=== PATIENT | female | born 1965 | race Hispanic/Latino ===

== ENCOUNTER 2024-11-11 07:12 | Inpatient (IN) | payer OTHER ==
[2024-11-07 09:52] LABS: BASOPHILS # (AUTO) 0.02 K/uL (0.00-0.20); BASOPHILS % (AUTO) 0.4 % (0.0-5.0); EOSINOPHILS # (AUTO) 0.04 K/uL (0.00-0.70); EOSINOPHILS % (AUTO) 0.8 % (0.0-8.0); HEMATOCRIT 37.7 % (36-48); IMMATURE GRANULOCYTE ABSOLUTE 0.01 K/uL (0-1); LYMPHOCYTES # (AUTO) 1.6 K/uL (1.0-4.8); LYMPHOCYTES % (AUTO) 32.7 % (21.0-51.0); MEAN CORPUSCULAR HEMOGLOBIN 30.6 pg (27.0-33.0); MEAN CORPUSCULAR HGB CONC 32.6 g/dL (32.0-36.0); MEAN CORPUSCULAR VOLUME 93.8 fL (79-99); MONOCYTES # (AUTO) 0.4 K/uL (0.1-1.0); MONOCYTES % (AUTO) 8.1 % (3.0-13.0); NEUTROPHILS # (AUTO) 2.8 K/uL (1.8-7.7); NEUTROPHILS % (AUTO) 57.8 % (40.0-77.0); PLATELET COUNT (AUTO) 198 K/uL (130-400); RED BLOOD CELL COUNT(AUTO) 4.02 MIL/uL (4.00-5.50); WHITE BLOOD COUNT (AUTO) 4.8 K/uL (4.8-10.8)
[2024-11-07 10:06] LABS: INR <= 0.93 (0.85-1.15); PROTHROMBIN TIME 9.9 SEC (9.6-11.6)
[2024-11-07 10:07] LABS: PARTIAL THROMBOPLASTIN TIME 25.1 SEC (26.3-35.5)
[2024-11-07 10:19] VITALS: BP 105/67; PULSE 59; RESP 16; TEMP 97.4
[~2024-11-11] VITALS: Ht 160 cm; Wt 83.5 kg
[2024-11-11] VITALS (32 sets, daily range): BP systolic 72–128; BP diastolic 30–71; PULSE 60–81; RESP 12–18; TEMP 97.4–98.4; O2SAT 100
[2024-11-11] MEDS: THROMBIN-JMI 5000 UNIT/VIAL TP ONE
[2024-11-11] MEDS: BUPIvacaine/PF 0.25% 30ML VIAL IJ ONE
[2024-11-11] MEDS: VANCOMYCIN 1G/250ML KIT 250 ML IV ONE
[2024-11-11] MEDS: TOBRAMYCIN SULFATE ONE
[2024-11-11] MEDS: LACTATED RINGERS 1000ML 1,000 ML IV ONE (06:17)
[~2024-11-11 07:12] MED LIST: ATEN50TA PO; ATOR40TA69 PO; FLUO10TA35 PO; LEVO137C4 PO
[2024-11-11] MEDS: acetaMINOPHEN 100 ML ONE (07:32)
[2024-11-11] MEDS ORDERED: ketaMINE 50MG/ML SYRINGE 50 MG/ML DISP.SYRIN ONE (07:33)
[2024-11-11] MEDS ORDERED: dexmedeTOMIDine HCL 200 MCG/2 ML VIAL IV ONE (07:33)
[2024-11-11] MEDS ORDERED: proPOFol 1000 MG/100 ML 100 ML IV ONE (07:34)
[2024-11-11] MEDS ORDERED: LIDOCAINE PF 100MG/5ML (2%) SYRINGE 5ML ONE ×2 (07:44→08:47)
[2024-11-11] MEDS ORDERED: proPOFol 10 MG/ML 20ML VIAL IV ONE (07:44)
[2024-11-11] MEDS ORDERED: FENTanyl CITRate PF 50 MCG/1 ML 2ML VIAL ONE (07:45)
[2024-11-11] MEDS ORDERED: rocuRONium bROMide 10MG/1ML 5ML VL ONE (07:45)
[2024-11-11 07:50] LABS: CREATININE 0.7 mg/dL (0.5-1.0); POTASSIUM 4.5 mmol/L (3.5-5.1)
[2024-11-11] MEDS ORDERED: ondanSETRON 4MG INJ ONE (08:11)
[2024-11-11] MEDS ORDERED: dexaMETHasone SOD PHOSPHATE 10MG/ML 1ML VIAL ONE (08:11)
[2024-11-11] MEDS: ceFAZolin SODIUM 2 GM VIAL ONE (08:35)
[2024-11-11] MEDS ORDERED: MIDAZOLAM HCL 1 MG/ML 2ML VIAL ONE (08:40)
[2024-11-11] MEDS ORDERED: phenylEPHRINE HCL 10 MG/ML 1ML VIAL IV ONE ×2 (09:04→09:05)
[2024-11-11] MEDS ORDERED: GLYCOPYRROLATE 0.2 MG/ML 5 ML VIAL ONE ×2 (09:23→11:59)
[2024-11-11] MEDS ORDERED: NEOSTIGMINE METHYLSULFATE 1MG/ML IV ONE (09:23)
[2024-11-11] MEDS ORDERED: ketOROlac 30MG VIAL (30MG/ML) ONE (11:46)
--- NOTE | 2024-11-11 12:45 | HMCIMG ---
Fluoroscopic guidance History: L-spine decomp W/ PLIF Fluoroscopic guidance provided. Procedure by ordering physician in operating room suite with fluoroscopic guidance. Several spot images were obtained. Impression: Fluoroscopic guidance.
[2024-11-11] MEDS: ePHEDrine SULFate 50 MG/ML AMPULE ONE (13:19)
--- NOTE | 2024-11-11 14:10 | OP ---
DATE OF PROCEDURE: 11/11/2024 PREOPERATIVE DIAGNOSIS: Lumbar spinal stenosis, lumbosacral radiculopathy with mechanical instability L4-L5, L5-S1, and disk herniation. POSTOPERATIVE DIAGNOSIS: Lumbar spinal stenosis, lumbosacral radiculopathy with mechanical instability L4-L5, L5-S1, and disk herniation. SURGEON: Balbir Henderson MD PROCEDURE PERFORMED: Posterior lumbar decompressive laminectomy L4-L5, L5-S1, interbody cage fusion with diskectomy, medial facetectomy, and foraminotomy L4-L5, L5-S1, titanium expandable cage L4-L5 and L5-S1 #8 and expanded to size #10. Lateral pedicle screw fixation L4, L5 and S1 confirmed by fluoroscopic guidance and allograft bony fusion with morselized autograft into the area of the gutters under sterile controlled condition. DESCRIPTION OF PROCEDURE: The patient was taken to the operating room, induced under general endotracheal anesthesia, placed in a prone position with adequate padding of the upper and lower extremities. I went ahead and made an incision guided by fluoroscopy machine at the level of L4-L5, L5-S1, dissected subperiosteally the muscles from the spinous process and lamina of facet joint, applied my Weitlaner retractors and after my Weitlaner retractors were applied, I went ahead and started doing the application of the pedicle screws. A 50 x 6.5 mm were placed in the L4, 45 x 6.0 two of them were placed at the level of L5, and 40 x 6.0 were placed in the area of the sacrum with good purchase into the bone and guided by fluoroscopy machine. After that, I went ahead and dissected and removed with an M8 drill all the available facet joint, lamina exposing disk space at the L4-L5, L5-S1, removing the disc and performing total diskectomy with application of my lukas, preparing the endplates to receive the cage. The cage was impacted after it was completely clean and full of bone and antibiotics were applied also to the area of the bone site and impaction of the cage was placed with bone into the space peripherally aligning the midline following the TLIF technique. After that was done, I went ahead and filled out the cavity with bone as well. I went ahead and decorticated the gutters, lamina, facet joint, transverse process and I put bone graft, again NovaBone and DBM with mixed bone from the patient morselized into the gutters and I put my kajal, locked my kajal in place with the screws, applied good compression and I applied antibiotics to the surface, Marcaine and I injected Marcaine into the muscle. I laid a JERRY #10 at the area of the epidural space and I closed with Vicryl 1-0 the fascia and Vicryl 2-0 the subcutaneous tissue as well as the fat and also I put carlos. Estimated blood loss about less than 25 mL. No complications. SSEPs were measured. The screws were tested with the Bovie. No evidence of irritation or high impedance. ESTIMATED BLOOD LOSS: . TID: [id number] RECEIPT: [id number]
[2024-11-11] MEDS: FAMOTIDINE 20MG VIAL IV ONE (14:38)
[2024-11-11] MEDS ORDERED: MEPERIDINE-PF 50 MG/ML SYG IVP PRN (15:00)
[2024-11-11] MEDS: ketOROlac 30MG VIAL (30MG/ML) IM ONE (15:04)
--- NOTE | 2024-11-11 18:08 | NUR ---
Pt seen for PT eval. Pt with 7/10 pain and soft BP of 88/38 in supine. LSO delivered. Patient agreeable to donning brace and repositioning. Bed mobility mod assist x 2pl for log roll, side to sit, sit to side and log roll back. Min assist x1 sit to stand, transfer and gait less than 10ft with SW. Back to bed patient is dizzy. Drain and LSO in place. Nurse Landen present and assisted. Pt with LSO, JERRY drain in place, call solorzano in reach, SCDs on. Education provided regarding pain mgt and plan of care. No further concerns. BP 77/39 98 02 75 HR at end of session. Pt attempting to eat. DC plan home with spouse.
[2024-11-11] MEDS: LACTULOSE 20 GM/30 ML UDCUP PO PRN (19:30)
[2024-11-11] MEDS: HYDROcodone/APAP 5/325 1 TAB TABLET PO PRN (19:33)
[2024-11-11] MEDS: ketOROlac 15MG/ML VIAL (15MG/ML) IM PRN (21:00)
[2024-11-12] VITALS (8 sets, daily range): BP systolic 91–106; BP diastolic 40–56; PULSE 73–85; RESP 18–20; TEMP 98.1–99.2; O2SAT 96–98
[2024-11-12 07:44] LABS: HEMATOCRIT 29.5 % (36-48); MEAN CORPUSCULAR HEMOGLOBIN 30.4 pg (27.0-33.0); MEAN CORPUSCULAR HGB CONC 32.9 g/dL (32.0-36.0); MEAN CORPUSCULAR VOLUME 92.5 fL (79-99); RED BLOOD CELL COUNT(AUTO) 3.19 MIL/uL (4.00-5.50); WHITE BLOOD COUNT (AUTO) 8.3 K/uL (4.8-10.8)
[2024-11-12 07:52] LABS: CREATININE 0.7 mg/dL (0.5-1.0)
[2024-11-12] MEDS ORDERED: morPHINE 4 MG SYG IVP PRN (11:30)
[2024-11-12 12:57] LABS: HEMATOCRIT 28.3 % (36-48); MEAN CORPUSCULAR HEMOGLOBIN 31.3 pg (27.0-33.0); MEAN CORPUSCULAR HGB CONC 33.6 g/dL (32.0-36.0); MEAN CORPUSCULAR VOLUME 93.1 fL (79-99); PLATELET COUNT (AUTO) 159 K/uL (130-400); RED BLOOD CELL COUNT(AUTO) 3.04 MIL/uL (4.00-5.50); RED CELL DISTRIBUTION WIDTH 12.2 % (11.0-15.5); WHITE BLOOD COUNT (AUTO) 8.1 K/uL (4.8-10.8)
[2024-11-12] MEDS: acetaMINOPHEN 325 MG TAB PO PRN (13:08)
[2024-11-12] MEDS: 0.9%NACL 1000ML 1,000 ML IV SCH (13:08)
[2024-11-12] MEDS: PANTOPrazole 40 MG/VIAL IVP SCH (13:08)
[2024-11-12 13:10] LABS: ALBUMIN 3.4 g/dL (3.5-5.0); BILIRUBIN,DIRECT 0.1 mg/dL (0.0-0.3); BILIRUBIN,TOTAL 0.5 mg/dL (0.2-1.0); TOTAL PROTEIN, SERUM 6.4 g/dL (6.0-8.3)
--- NOTE | 2024-11-12 13:10 | CONS ---
[facility] CONSULTATION NOTE Date of Service: Nov 12, 2024 Reason for Consultation: [Medical Management ] Requesting Physician: [ Dr. Henderson] HISTORY OF PRESENT ILLNESS: Date of service: 11/12/2024, patient was seen in [facility] room 424 59-year-old female with underlying history of hypertension, hyperlipidemia, history of peripheral neuropathy, hypothyroidism with chronic history of lumbar spinal stenosis with lumbosacral radiculopathy over the past two years. Patient is currently postoperative day 1 after she had a posterior lumbar decompressive laminectomy involving L4-L5, L5-S1, interbody cage fusion with discectomy, medial facetectomy, foraminotomy L4-L5, L5-S1, titanium expandable cage L4-L5 and L5-S1 #8 and expanded to size #10. Lateral pedicle screw fixation L4, L5 and S1 confirmed by fluoroscopic guidance and allograft bony fusion with morselized autograft into the area of the gutters by Dr. Henderson on 11/11/2024. Patient is seen postoperatively today. She denies any focal weakness of upper or lower extremities. She denies any shortness of breath, chest pain or chest pressure. Pressure postoperatively was running low yesterday with systolics in the 90s-70s. Patient is on atenolol 50 mg at bedtime usually for management of high blood pressure. She did not take the dose of blood pressure medication yesterday. Nursing staff reports that patient has had about 300 cc of serosanguineous output from the JERRY drain post surgery yesterday as well as 60 cc this a.m.. Patient denies overt signs of GI bleeding otherwise. REVIEW OF SYSTEMS CONSTITUTIONAL: Denies fevers, chills, or night sweats. No unintentional weight loss reported. NEUROLOGICAL: Denies headache, amaurosis fugax, motor weakness, sensory deficit, vertigo/spinning sensation, gait abnormalities, or tremors. Reports having postoperative back pain. ENT: No hearing loss, otalgia, otorrhea, rhinitis, rhinorrhea, hoarseness, or sore throat. CARDIOVASCULAR: Denies any exertional angina, dyspnea on exertion, orthopnea, paroxysmal nocturnal dyspnea, palpitations, life-threatening arrhythmias, claudication. PULMONARY: Denies any shortness of breath, cough, phlegm/sputum, hemoptysis, pleuritic chest pain. SLEEP: Denies morning headaches, daytime somnolence or napping. Denies difficulty falling asleep, staying asleep, waking from sleep. Denies knowledge of snoring. GASTROINTESTINAL: Denies any type of dysphagia to either liquids or solids. De nies nausea, vomiting, pyrosis, early satiety, abdominal pain, diarrhea, constipation, or changes in stool consistency or caliber. Denies coffee-ground emesis, hematemesis, hematochezia, or melanotic stools. GENITOURINARY: Denies frequency, urgency, nocturia, hematuria or incontinence (Storage/Irritative symptoms.) Low urinary stream, straining to void, urinary intermittency or hesitancy, splitting of the voiding stream, terminal dribbling. ENDOCRINOLOGIC: Denies polyuria, polydipsia, polyphagia or heat/cold intolerances. HEMATOLOGIC: Denies thrombophilia/previous clots, or coagulopathy/bleeding disorders. ONCOLOGIC: Denies personal history of malignancy. DERMATOLOGIC: Denies rashes or pruritus. PSYCHIATRIC: Denies any suicidal or homicidal ideation. Denies hallucinations. PAST MEDICAL HISTORY: Hypertension, obesity, hyperlipidemia, history of peripheral neuropathy, history of lumbar stenosis with radiculopathy, hypothyroidism PAST SURGICAL HISTORY: Bilateral carpal tunnel syndrome history of carpal tunnel release for bilateral carpal tunnel syndrome, history of nasal septoplasty PAST SOCIAL HISTORY: She denies any active smoking or alcohol consumption FAMILY HISTORY: Denies pertinent family history Allergies: Denies any known drug allergies Medications: Atenolol 50 mg daily at bedtime, atorvastatin 40 mg daily, fluoxetine 10 mg daily, levothyroxine 137 mcg daily Coded Allergies: No Known Drug Allergies (Unverified Allergy, Unknown, 11/07/24) PHYSICAL EXAM GENERAL APPEARANCE: The patient is awake, alert, and oriented, in no acute c ardiopulmonary distress. NEUROLOGICAL: Cranial nerves II-XII grossly intact. Motor is 5/5 in bilateral upper and lower extremities proximal to distal. No sensory deficits. HEENT: Face is symmetric. Pupils are equal and reactive. Extraocular movements are intact. NECK: Supple. No JVD. No thyromegaly. No submental, submandibular, pre- /postauricular, occipital or supraclavicular lymphadenopathy. CHEST: Normal chest expansion. No Telemetry. LUNGS: Absence of any rales, rhonchi or any wheezing. CARDIOVASCULAR: Regular. S1 and S2 normal. No appreciable rubs, murmurs or gallops. ABDOMEN: Soft, nontender, and nondistended. There is no rebound, voluntary guarding, or rigidity. : Deferred. No Noonan. EXTREMITIES: Non-edematous and not cyanotic. No clubbing. Good capillary refill. SKIN: No skin breakdown. Vital Sign (Last 24 Hours) 11/12/24 11/12/24 01:56 11:58 Temp 98.6 Pulse 73 Resp 18 B/P (MAP) 91/51 Pulse Ox 91 O2 Delivery Room Air O2 Flow Rate 0 FiO2 21 Intake & Output (last 24hrs) 11/11/24 11/11/24 11/12/24 15:00 23:00 07:00 Output Total 580 ml 170 ml Balance -580 ml -170 ml LABS: Laboratory: Test 11/12/24 12:40 11/12/24 07:29 Range/Units Lactic Acid Level 1.7 0.8-2.5 mmol/L White Blood Count 8.3 4.8-10.8 K/uL Red Blood Count 3.19 L 4.00-5.50 MIL/uL Hemoglobin 9.7 L 12.0-16.0 g/dL Hematocrit 29.5 L 36-48 % Mean Corpuscular Volume 92.5 79-99 fL Mean Corpuscular Hemoglobin 30.4 27.0-33.0 pg Mean Corpuscular Hemoglobin Concent 32.9 32.0-36.0 g/dL Red Cell Distribution Width 12.0 11.0-15.5 % Platelet Count 96 L 130-400 K/uL Mean Platelet Volume 10.1 7.5-10.5 fL Nucleated Red Blood Cells 0.0 0.0-0.19 % Sodium Level 139 136-145 mmol/L Potassium Level 4.0 3.5-5.1 mmol/L Chloride Level 106 101-111 mmol/L Carbon Dioxide Level 26 21-32 mmol/L Blood Urea Nitrogen 15 7-18 mg/dL Creatinine 0.7 0.5-1.0 mg/dL Glomerular Filtration Rate Calc 100 >90 mL/min Random Glucose 117 H 70-105 mg/dL Total Calcium 8.5 8.5-10.1 mg/dL DIAGNOSTICS / RADIOLOGY: none ASSESSMENT: Hx of lumbar spinal stenosis with lumbosacral radiculopathy, POA s/p posterior lumbar decompressive laminectomy involving L4-L5, L5-S1, interbody cage fusion with discectomy, medial facetectomy, foraminotomy L4-L5, L5-S1, and Lateral pedicle screw fixation L4, L5 and S1 by Dr. Henderson, 11/11/2024 Postoperative hypotension, improving Postoperative anemia Underlying history of hypertension, POA Hyperlipidemia, POA Hypothyroidism, POA Obesity, POA PLAN: Patient will continue with admission in medical-surgical floor We will start IV hydration with NS at 75 mL/hour given blood pressure remains soft, systolic in the 90s We will hold antihypertensives for tonight until BP trend improves We will recheck a CBC with manual differential, hemoglobin close to 7:00 a.m. was noted to be at 9.7 [place] [address], we will ensure patient has no signs of thrombocytopenia with repeat CBC, nursing staff reports that patient has had about 300 mL of serosanguineous drainage overnight as well as 60 mL so far, we will have nursing staff inform Dr. Henderson of the JERRY drain output as well as repeat H&H, patient has no focal neurologic deficits, patient is able to move both her bilateral lower extremities with no numbness or weakness otherwise Patient has been started on oral iron sulfate for management of postoperative anemia We will obtain a urinalysis with urine culture, we will monitor closely for signs of infection Patient to continue with physical therapy treatment Continue with home dose of levothyroxine, atorvastatin We will start patient on Protonix 40 mg daily, Toradol as already been ordered by primary team for pain control along with Echola and morphine, we can add Tylenol for additional pain control as needed All labs will be repeated in the morning, Surgical Service to continue to follow this patient closely with regards to postoperative care Date of service: 11/12/2024 Plan of care discussed with patient and family at bedside, JENIFER Clarke MD, MD Nov 12, 2024 13:10
[2024-11-12 13:19] LABS: INR <= 0.93 (0.85-1.15); PROTHROMBIN TIME 9.8 SEC (9.6-11.6)
[2024-11-12 13:21] LABS: PARTIAL THROMBOPLASTIN TIME 21.7 SEC (26.3-35.5)
[2024-11-12] MEDS: FERROUS SULFATE 325 MG TABLET.DR PO SCH (14:15)
[2024-11-12 14:24] LABS: BAND NEUTROPHILS % (MANUAL) 1 % (0-2); LYMPHOCYTES % (MANUAL) 16 % (22-44); MONOCYTES % (MANUAL) 6 % (2-9); SEGMENTED NEUTROPHILS % 77 % (40-70); TOTAL CELLS COUNTED 100
[2024-11-12 14:25] LABS: MAN.DIFF COMMENT-IMPRESSION MANUAL DIFFERENTIAL
[2024-11-12 14:28] LABS: PLATELET MORPHOLOGY COMMENT DECREASED
[2024-11-12] MEDS ORDERED: polyETHYLene GLYCol 3350 17 GM POWD.PACK PO PRN (14:30)
[2024-11-12 14:41] LABS: APPEARANCE,URINE CLEAR (CLEAR); BILIRUBIN,URINE NEGATIVE (NEGATIVE); COLOR,URINE COLORLESS (YELLOW); GLUCOSE, URINE (UA) NEGATIVE (NEGATIVE); KETONES,URINE NEGATIVE (NEGATIVE); LEUKOCYTE ESTERASE ,URINE NEGATIVE Leu/uL (NEGATIVE); NITRATE,URINE NEGATIVE (NEGATIVE); OCCULT BLOOD,URINE NEGATIVE (NEGATIVE); PROTEIN,URINE NEGATIVE (NEGATIVE); UROBILINOGEN,URINE 0.2 mg/dL (0.2-1.0)
[2024-11-12 14:57] LABS: ADD UA MICROSCOPIC NO
--- NOTE | 2024-11-12 17:47 | NUR ---
MADE DR. PONCE AWARE OF THE JERRY DRAIN OUTPUT WELL THE HEMOGLOBIN PER DR. COOPER. PER DR. PONCE CONTINUE TO MONITOR PATIENT
[2024-11-12] MEDS: doCUSate SODIUM 100 MG CAP PO SCH (21:00)
[2024-11-12] MEDS: atorVAStatin 40 MG TABLET PO SCH (21:01)
[2024-11-13 04:09] VITALS: BP 115/58; PULSE 66; RESP 17; TEMP 98.4
[2024-11-13 05:16] LABS: HEMATOCRIT 26.6 % (36-48); MEAN CORPUSCULAR HEMOGLOBIN 30.7 pg (27.0-33.0); MEAN CORPUSCULAR HGB CONC 32.7 g/dL (32.0-36.0); PLATELET COUNT (AUTO) 138 K/uL (130-400); RED BLOOD CELL COUNT(AUTO) 2.83 MIL/uL (4.00-5.50); RED CELL DISTRIBUTION WIDTH 12.3 % (11.0-15.5); WHITE BLOOD COUNT (AUTO) 7.2 K/uL (4.8-10.8)
[2024-11-13 06:08] LABS: LYMPHOCYTES % (MANUAL) 25 % (22-44); MONOCYTES % (MANUAL) 3 % (2-9); SEGMENTED NEUTROPHILS % 72 % (40-70); TOTAL CELLS COUNTED 100
[2024-11-13 06:09] LABS: MAN.DIFF COMMENT-IMPRESSION MANUAL DIFFERENTIAL
[2024-11-13] MEDS: levoTHYROxine 112 MCG TABLET PO SCH (06:27)
[2024-11-13] MEDS: levoTHYROxine 25 MCG TABLET PO SCH (06:27)
[2024-11-13 08:00] VITALS: BP 105/53; PULSE 80; RESP 18; TEMP 98.4; O2SAT 100; O2SAT 95
[2024-11-13] MEDS: FLUoxetine HCL 10 MG CAPSULE PO SCH (08:46)
--- NOTE | 2024-11-13 10:19 | NUR ---
DCP -- Home Patient states lives with Patricia Potter, Spouse [phone] and spouse's grandparents in a house with two steps and walk in shower. 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 States able to complete ADL's on her own before surgery. Denies medical devices. States Dr. Henderson is arranging [facility] for wound care. Signed consent in chart; notified CM. Denies home care provider or dialysis. PCP - Dmitriy Montero MD Pharmacy - [facility]. Upon discharge, Patricia Potter, Spouse [phone] and assist with care. Addendum: 11/13/24 at 1026 by LYN OQUENDO RN CM Amended: Links added.
--- NOTE | 2024-11-13 10:32 | NUR ---
ASSOCIATE ACCOUNT MANAGER REPORTED DRAINAGE FROM THE INSERTION SITE OF THE PATIENT'S JERRY DRAIN. THE GAUZE WAS CHANGE TWICE LAST NIGHT AND ONCE THIS MORNING ON MY SHIFT. SPOKE WITH DR. PONCE AND MADE HIM AWAKE. HIS ORDERS WERE TO KEEP SITE CLEAN AND CHANGE GAUZE AND THE DRAIN WILL BE REMOVED THIS AFTERNOON.
--- NOTE | 2024-11-13 11:00 | NUR ---
DR SANTANA HERE TO SEE PATIENT NEW ORDERS RECEIVED FOR REPEAT CBC AND IRON PANEL AND STOOL COLLECTION FOR OCCULT BLOOD. ORDERS IN PLACE AND CARRIED OUT
[2024-11-13 12:00] VITALS: BP 104/48; PULSE 84; RESP 20; TEMP 98.7
--- NOTE | 2024-11-13 14:20 | PN ---
[facility] PROGRESS NOTE Date of Service: Nov 13, 2024 Time of Service: 14:18 SUBJECTIVE: 59-year-old female with underlying history of hypertension, hyperlipidemia, history of peripheral neuropathy, hypothyroidism with chronic history of lumbar spinal stenosis with lumbosacral radiculopathy over the past two years. Patient underwent a posterior lumbar decompressive laminectomy involving L4-L5, L5-S1, interbody cage fusion with discectomy, medial facetectomy, foraminotomy L4-L5, L5-S1, titanium expandable cage L4-L5 and L5-S1 #8 and expanded to size #10. Lateral pedicle screw fixation L4, L5 and S1 confirmed by fluoroscopic guidance and allograft bony fusion with morselized autograft into the area of the gutters by Dr. Henderson on 11/11/2024. At the time of my visit patient comfortable, hemodynamically stable, no chest pain, shortness shortness for breath, no nausea, no vomiting, no abdominal discomfort. Hemoglobin today at 8.7. REVIEW OF SYSTEMS CONSTITUTIONAL: Denies fevers, chills, or night sweats. No unintentional weight loss reported. NEUROLOGICAL: Denies headache, amaurosis fugax, motor weakness, sensory deficit, vertigo/spinning sensation, gait abnormalities, or tremors. Reports having postoperative back pain. ENT: No hearing loss, otalgia, otorrhea, rhinitis, rhinorrhea, hoarseness, or sore throat. CARDIOVASCULAR: Denies any exertional angina, dyspnea on exertion, orthopnea, paroxysmal nocturnal dyspnea, palpitations, life-threatening arrhythmias, claudication. PULMONARY: Denies any shortness of breath, cough, phlegm/sputum, hemoptysis, pleuritic chest pain. SLEEP: Denies morning headaches, daytime somnolence or napping. Denies difficulty falling asleep, staying asleep, waking from sleep. Denies knowledge of snoring. GASTROINTESTINAL: Denies any type of dysphagia to either liquids or solids. Denies nausea, vomiting, pyrosis, early satiety, abdominal pain, diarrhea, constipation, or changes in stool consistency or caliber. Denies coffee-ground emesis, hematemesis, hematochezia, or melanotic stools. GENITOURINARY: Denies frequency, urgency, nocturia, hematuria or incontinence (Storage/Irritative symptoms.) Low urinary stream, straining to void, urinary intermittency or hesitancy, splitting of the voiding stream, terminal dribbling. ENDOCRINOLOGIC: Denies polyuria, polydipsia, polyphagia or heat/cold intolerances. HEMATOLOGIC: Denies thrombophilia/previous clots, or coagulopathy/bleeding disorders. ONCOLOGIC: Denies personal history of malignancy. DERMATOLOGIC: Denies rashes or pruritus. PSYCHIATRIC: Denies any suicidal or homicidal ideation. Denies hallucinations. PHYSICAL EXAM GENERAL APPEARANCE: The patient is awake, alert, and oriented, in no acute cardiopulmonary distress. NEUROLOGICAL: Cranial nerves II-XII grossly intact. Motor is 5/5 in bilateral upper and lower extremities proximal to distal. No sensory deficits. HEENT: Face is symmetric. Pupils are equal and reactive. Extraocular movements are intact. NECK: Supple. No JVD. No thyromegaly. No submental, submandibular, pre- /postauricular, occipital or supraclavicular lymphadenopathy. CHEST: Normal chest expansion. No Telemetry. LUNGS: Absence of any rales, rhonchi or any wheezing. CARDIOVASCULAR: Regular. S1 and S2 normal. No appreciable rubs, murmurs or gallops. ABDOMEN: Soft, nontender, and nondistended. There is no rebound, voluntary guarding, or rigidity. : Deferred. No Noonan. EXTREMITIES: Non-edematous and not cyanotic. No clubbing. Good capillary refill. SKIN: No skin breakdown. Vital Signs (last 8hr) Date Time Temp Pulse Resp B/P (MAP) Pulse Ox O2 Delivery O2 Flow Rate FiO2 11/13/24 12:00 98.8 84 20 104/48 100 Room Air 21 11/13/24 08:00 98.4 80 18 105/53 98 Room Air 21 LABS: Laboratory: Test 11/13/24 11:12 11/13/24 05:08 11/12/24 14:28 11/12/24 12:40 Range/Units Stool Occult Blood NEGATIVE NEGATIVE White Blood Count 7.2 4.8-10.8 K/uL Red Blood Count 2.83 L 4.00-5.50 MIL/uL Hemoglobin 8.7 L 12.0-16.0 g/dL Hematocrit 26.6 L 36-48 % Mean Corpuscular Volume 94.0 79-99 fL Mean Corpuscular Hemoglobin 30.7 27.0-33.0 pg Mean Corpuscular Hemoglobin Concent 32.7 32.0-36.0 g/dL Red Cell Distribution Width 12.3 11.0-15.5 % Platelet Count 138 130-400 K/uL Mean Platelet Volume 8.8 7.5-10.5 fL Segmented Neutrophils % 72 H 40-70 % Lymphocytes % (Manual) 25 22-44 % Monocytes % (Manual) 3 2-9 % Nucleated Red Blood Cells 0.0 0.0-0.19 % Differential Comment MANUAL DIFFERENTIAL White Cell Morphology Comment Platelet Morphology Comment See comments Red Blood Cell Morphology HYPOCHROM CELLS 1+ Urine Color COLORLESS YELLOW Urine Appearance CLEAR CLEAR Urine pH 6.0 5.0-8.0 Urine Specific [place] 1.005 1.001-1.031 Urine Protein NEGATIVE NEGATIVE mg/dL Urine Glucose (UA) NEGATIVE NEGATIVE mg/dL Urine Ketones NEGATIVE NEGATIVE mg/dL Urine Occult Blood NEGATIVE NEGATIVE Urine Nitrate NEGATIVE NEGATIVE Urine Bilirubin NEGATIVE NEGATIVE mg/dL Urine Urobilinogen 0.2 0.2-1.0 mg/dL Urine Leukocyte Esterase NEGATIVE NEGATIVE Jt/uL Band Neutrophils % 1 0-2 % Prothrombin Time 9.8 9.6-11.6 SEC Prothromb Time International Ratio <= 0.93 0.85-1.15 Activated Partial Thromboplast Time 21.7 L 26.3-35.5 SEC Lactic Acid Level 1.7 0.8-2.5 mmol/L Total Bilirubin 0.5 0.2-1.0 mg/dL Direct Bilirubin 0.1 0.0-0.3 mg/dL Aspartate Amino Transf (AST/SGOT) 24 10-37 U/L Alanine Aminotransferase (ALT/SGPT) 26 12-78 U/L Alkaline Phosphatase 70 50-136 U/L Total Protein 6.4 6.0-8.3 g/dL Albumin 3.4 L 3.5-5.0 g/dL Test 11/12/24 07:29 Range/Units Sodium Level 139 136-145 mmol/L Potassium Level 4.0 3.5-5.1 mmol/L Chloride Level 106 101-111 mmol/L Carbon Dioxide Level 26 21-32 mmol/L Blood Urea Nitrogen 15 7-18 mg/dL Creatinine 0.7 0.5-1.0 mg/dL Glomerular Filtration Rate Calc 100 >90 mL/min Random Glucose 117 H 70-105 mg/dL Total Calcium 8.5 8.5-10.1 mg/dL Current Medications Medications (Trade) Dose Ordered Sig/Maeve Route PRN Reason Start Time Stop Time Status Last Admin Dose Admin Acetaminophen (TYLenol 325MG TAB) 650 mg Q6H PRN PO MILD PAIN (1-3) 11/12/24 12:00 12/12/24 11:59 11/13/24 08:54 650 MG Acetaminophen/ Hydrocodone Bitart (NORco 5/325MG) 1 tab Q4H PRN PO MODERATE PAIN (4-6) 11/11/24 15:00 11/16/24 14:59 11/12/24 01:30 1 TAB Atorvastatin Calcium (LIPItor 40MG) 40 mg PM PO 11/12/24 21:00 12/12/24 20:59 11/12/24 21:01 40 MG Docusate Sodium (COLace 100MG CAP) 100 mg BID PO 11/12/24 21:00 12/12/24 20:59 11/13/24 08:46 100 MG Ferrous Sulfate (Ferrous Sulfate) 325 mg TID PO 11/12/24 14:00 12/12/24 13:59 11/13/24 08:46 325 MG Fluoxetine HCl (PROzac 10mg CAP) 10 mg DAILY PO 11/13/24 09:00 12/13/24 08:59 11/13/24 08:46 10 MG Ketorolac Tromethamine (toRADol) 15 mg Q4HPRN PRN IM MODERATE PAIN (4-6) IF NPO 11/11/24 15:00 11/16/24 14:59 11/11/24 21:00 15 MG Lactulose (Constulose 20gm/ 30ml Udcup) 20 gm BID PRN PO CONSTIPATION 11/11/24 15:00 12/11/24 14:59 11/11/24 19:30 20 GM Levothyroxine Sodium (SYNTHroid 112MCG TAB) 112 mcg SYN PO 11/13/24 06:30 12/13/24 06:29 11/13/24 06:27 112 MCG Levothyroxine Sodium (SYNTHroid 25MCG TAB) 25 mcg SYN PO 11/13/24 06:30 12/13/24 06:29 11/13/24 06:27 25 MCG Meperidine HCl (Demerol-Pf) 50 mg Q4H PRN IVP SEVERE PAIN (7-10) 11/11/24 15:00 11/11/24 15:02 DC Morphine Sulfate (morPHINE 4MG SYG) 4 mg Q6H PRN IVP SEVERE PAIN (7-10) 11/12/24 11:30 11/19/24 11:29 Pantoprazole Sodium (PROTonix 40MG INJ) 40 mg Q24H IVP 11/12/24 12:30 12/12/24 12:29 11/13/24 12:49 40 MG Polyethylene Glycol (MIRalax 3350 17 GM POWD.PACK) 17 gm DAILY PRN PO constipation 11/12/24 14:30 12/12/24 14:29 Sodium Chloride 1,000 ml @ 75 mls/hr [id number] IV 11/12/24 12:30 12/12/24 12:29 11/13/24 02:59 75 MLS/HR DIAGNOSTICS / RADIOLOGY: [ ] ASSESSMENT: Hx of lumbar spinal stenosis with lumbosacral radiculopathy, POA s/p posterior lumbar decompressive laminectomy involving L4-L5, L5-S1, interbody cage fusion with discectomy, medial facetectomy, foraminotomy L4-L5, L5-S1, and Lateral pedicle screw fixation L4, L5 and S1 by Dr. Henderson, 11/11/2024 Postoperative hypotension, improving Postoperative anemia Underlying history of hypertension, POA Hyperlipidemia, POA Hypothyroidism, POA Obesity, POA PLAN: Patient will continue with admission in medical-surgical floor Continue with the NS at 75 mL/hour given blood pressure remains soft, systolic in the 90s Follow repeat CBC today, transfuse 1 unit of PRBC if hemoglobin less than seven Continue to follow neurosurgical input recommendation Patient has been started on oral iron sulfate for management of postoperative anemia Urinalysis negative Patient to continue with physical therapy treatment Continue with home dose of levothyroxine, atorvastatin Discontinue Toradol in view of anemia NAS SANTANA MD Nov 13, 2024 14:20
--- NOTE | 2024-11-13 14:57 | PN ---
This is postoperative day #2. A female patient who underwent a posterior lumbar decompressive laminectomy and fusion L4-L5, L5-S1 due to severe intractable lower back pain, not responding to conservative therapy. The patient is doing much better. She has been having some fluctuations in the blood pressure today, running a little bit low for the life, the last one was about 93/57. We are trying to increase the hematocrit with ferrous sulfate and trying to keep her hydrated at this moment. She is not tachycardic. She looks to be clinically stable. The wound looks clean, no discharge. I planned the JERRY and then we would correlate with a low hemoglobin and hematocrit, which is at this with 29. Anyway, the patient will be encouraged to do ambulation and walking and get out of bed with the brace. Hoping that she felt better in the next couple of days, if the blood pressure normalized and we do not have any drop in the hemoglobin, we are going to go ahead and probably think about discharging the patient home with a follow up in my office in 2 weeks. TID: [id number] RECEIPT: [id number]
[2024-11-13 15:06] LABS: BASOPHILS # (AUTO) 0.02 K/uL (0.00-0.20); BASOPHILS % (AUTO) 0.2 % (0.0-5.0); HEMATOCRIT 27.3 % (36-48); IMMATURE GRANULOCYTE ABSOLUTE 0.04 K/uL (0-1); LYMPHOCYTES # (AUTO) 1.6 K/uL (1.0-4.8); LYMPHOCYTES % (AUTO) 18.5 % (21.0-51.0); MEAN CORPUSCULAR HEMOGLOBIN 30.3 pg (27.0-33.0); MEAN CORPUSCULAR HGB CONC 32.6 g/dL (32.0-36.0); MEAN CORPUSCULAR VOLUME 92.9 fL (79-99); MONOCYTES # (AUTO) 0.7 K/uL (0.1-1.0); MONOCYTES % (AUTO) 7.7 % (3.0-13.0); NEUTROPHILS # (AUTO) 6.2 K/uL (1.8-7.7); NEUTROPHILS % (AUTO) 73.1 % (40.0-77.0); PLATELET COUNT (AUTO) 180 K/uL (130-400); RED BLOOD CELL COUNT(AUTO) 2.94 MIL/uL (4.00-5.50); RED CELL DISTRIBUTION WIDTH 12.4 % (11.0-15.5); WHITE BLOOD COUNT (AUTO) 8.4 K/uL (4.8-10.8)
[2024-11-13 15:25] LABS: % IRON SATURATION 9.9 % (22-44)
[2024-11-13 16:00] VITALS: BP 106/47; PULSE 76; RESP 18; TEMP 98.4
[2024-11-13] MEDS: IRON sUCROse COMPLEX 100 MG/5 ML VIAL IV SCH (16:05)
[2024-11-13 20:00] VITALS: BP 101/59; PULSE 103; RESP 18; TEMP 98.7
[2024-11-13 21:00] VITALS: O2SAT 99
[2024-11-14] VITALS: BP 123/66; PULSE 92; RESP 18; TEMP 98.7
[2024-11-14 04:00] VITALS: BP 100/50; PULSE 90; RESP 18; TEMP 99.3
[2024-11-14 06:01] LABS: HEMATOCRIT 26.2 % (36-48); MEAN CORPUSCULAR HEMOGLOBIN 30.7 pg (27.0-33.0); MEAN CORPUSCULAR HGB CONC 32.8 g/dL (32.0-36.0); MEAN CORPUSCULAR VOLUME 93.6 fL (79-99); RED BLOOD CELL COUNT(AUTO) 2.8 MIL/uL (4.00-5.50); RED CELL DISTRIBUTION WIDTH 12.1 % (11.0-15.5); WHITE BLOOD COUNT (AUTO) 6.5 K/uL (4.8-10.8)
[2024-11-14 06:24] LABS: ALBUMIN 2.8 g/dL (3.5-5.0); BILIRUBIN,TOTAL 0.4 mg/dL (0.2-1.0); CREATININE 0.6 mg/dL (0.5-1.0); MAGNESIUM 1.7 mg/dL (1.80-2.40); POTASSIUM 3.8 mmol/L (3.5-5.1); TOTAL PROTEIN, SERUM 5.8 g/dL (6.0-8.3)
[2024-11-14 08:00] VITALS: BP 114/48; PULSE 95; RESP 18; TEMP 98; O2SAT 100
[2024-11-14 12:00] VITALS: BP 129/66; PULSE 82; RESP 18; TEMP 98.2
--- NOTE | 2024-11-14 12:07 | NUR ---
PATIENT D/C HOME. NO S/S OF DISTRESS NOTED. MEDICATIONS REVIEWED WITH PATIENT. CALL MADE TO DR FALL OFFICE FOR APPT PER NURSE THEY WILL CALL PATIENTS PERSONAL OHONE TO SET THAT UP. VERIFIED NUMBER WITH NURSE AND PATIENT MADE AWARE. PATIENT TAKEN DOWNSTAIRS AND TRANSFERRED TO PERSONAL VEHICLE
--- NOTE | 2024-11-14 13:21 | PN ---
This is postoperative day #2. The patient is status post posterior decompression and fusion at the level of L4-L5 and L5-S1 with severe and intractable lower back pain, now responding to conservative therapy. The patient is doing much better. She is awake. She is arousable. She is following commands. She is still a little bit sore in the surgical site but is doing much better in terms of the pain. The drain has been removed today. It got leaked about 50 mL. The patient is ambulating and moved her bowels today. She does not feel dizzy. She is not tachycardic. Vital signs are normal. Her hemoglobin dropped to 8.7 but she is on ferrous sulfate . The plan is to probably send her home tomorrow with a further followup in my office in 2 weeks. Local care of the wound was provided today with Betadine and was checked and it was perfectly fine. No signs of complication so far at this moment. TID: [id number] RECEIPT: [id number]
--- NOTE | 2024-11-14 13:39 | PR ---
PREOPERATIVE DIAGNOSES: Lumbar disk herniation L4-L5, L5-S1 with severe intractable lower back pain, not responsive to conservative therapy. POSTOPERATIVE DIAGNOSES: Lumbar disk herniation L4-L5, L5-S1 with severe intractable lower back pain, not responsive to conservative therapy. SURGEON: Balbir Henderson MD PROCEDURE: Decompressive laminectomy L4-L5, L5-S1. Bilateral foraminotomy L4-L5, L5-S1. Medial facetectomy L4-L5, L5-S1. Arthrodesis L4-L5 and L5-S1. Pedicle screw fixation L4-L5 and S1 with interbody cage fusion with titanium cage at the level of L4-L5, L5-S1 with allograft autograft morselized into the interspace, arthrodesis posterolateral with application of allograft morselized and autograft morselized and allograft and DBM into the gutters and application of lumbar drain. INDICATIONS FOR PROCEDURE: The patient was brought to the holding area and she was explained about benefits and complications of surgical intervention including the risks of and even with complication with anesthetic medications with bleeding, bleeding in the retroperitoneum, bleeding in the area of surgical site, paralysis of the lower extremity roots including dorsiflexion and plantarflexion, urinary infections, more pain than it was before. The patient agreed with surgical intervention under sterile controlled condition. DESCRIPTION OF PROCEDURE: The patient was taken to the operating room and induced under general endotracheal anesthesia. She was placed in a prone position with adequate padding of the upper and lower extremities. Proper timeout was done by anesthesia as well as with surgical group in order to prepare the patient for a surgical intervention. Dissection was done subperiosteally around the area of the surgical site and I went ahead and performed an application of my Weitlaner retractors in order to expose the subcutaneous tissue, prominent fat tissue with a lipoma in the area of the surface that it was removed as well and I went ahead and dissected down to the head of the fascia, the fascia with Bovie subperiosteally from the lamina facet joint on to left transverse process. Transverse process was exposed in order to create incision of the pedicle. Transverse process junction with the pars intraarticularis and was identified using my Jamshidi needle and I went ahead and localized myself in the lateral part of the pedicle, piercing the pedicle all the way down to the vertebral body, 75% of the vertebral body was pierced and I went ahead and put my screws 7.0 x 45 into the area of the vertebral body and a 7.0 x 40 into the area of the sacrum. I also fitted a brace for evaluation of the screws, I checked the impedance. There was no evidence of alteration on the impedances and normal response. I went ahead and applied a laminectomy from L4-L5 to L5-S1 exposing the foramina one of the foramina to be sure, there was no compression again into the disk space at L4-L5 first and I used my shaver retractors in order to prepare the endplate, agian my cage titanium size #8 and impacted into the interspace, tracing the cage up to 10 cm to a size #10, applied bone graft into the cavity as well. Once I did that, I went ahead and applied a second cage into the area of the interspace of L5-S1 that was severely tight and I broke the osteophyte that was on top of that and I started chiseling all the way down to the vertebral interspace and prepared the applied a cage size #8 into the interspace with very gentle retraction of the root. After that, hemostasis was secured with Surgiflo and copious irrigation. I went ahead and decorticated the area of the facet joint, transverse process, pars intraarticularis and applied bone graft into the on both sides. Then, I put my kajal, locked my rods in place and started closing with a JERRY drain placed on the left side. The fascia was closed with Vicryl 1-0, subcutaneous tissue with Vicryl 2-0 and skin with carlos. No sign of clinical complications through the whole procedure. Estimated blood loss about 25 mL. No complications throughout the procedure. TID: [id number] RECEIPT: [id number]
--- NOTE | 2024-11-14 13:54 | DS ---
Discharge Summary Hospital Course Summary: 59-year-old female with underlying history of hypertension, hyperlipidemia, history of peripheral neuropathy, hypothyroidism with chronic history of lumbar spinal stenosis with lumbosacral radiculopathy over the past two years. Patient admitted by surgery, i underwent a posterior lumbar decompressive lami nectomy involving L4-L5, L5-S1, interbody cage fusion with discectomy, medial facetectomy, foraminotomy L4-L5, L5-S1, titanium expandable cage L4-L5 and L5-S1 #8 and expanded to size #10. Lateral pedicle screw fixation L4, L5 and S1 confirmed by fluoroscopic guidance and allograft bony fusion with morselized autograft into the area of the gutters by Dr. Henderson on 11/11/2024. As of today the patient is hemodynamically stable, alert oriented x3, training removed by Neurosurgery, clear to be discharged home and follow up as an outpatient in one week. In the hospitalization patient noted to have mild anemia, no melena, hematochez ia, no hematemesis, no hematuria. Patient with a low iron level, discussed with the patient that she will require outpatient follow up for further investigation. Kiln Hand(s): Neurosurgery Assessment/Plan: Final diagnosis Hx of lumbar spinal stenosis with lumbosacral radiculopathy, POA s/p posterior lumbar decompressive laminectomy involving L4-L5, L5-S1, interbody cage fusion with discectomy, medial facetectomy, foraminotomy L4-L5, L5-S1, and Lateral pedicle screw fixation L4, L5 and S1 by Dr. Henderson, 11/11/2024 Postoperative hypotension, improving Postoperative anemia Underlying history of hypertension, POA Hyperlipidemia, POA Hypothyroidism, POA Obesity, POA Discharge Instructions: Patient to follow up with the doctor annabelle as an outpatient in one week. Education for Tylenol No. 3, Zanaflex and Keflex provided by neurosurgery. I have provided prescription for ferrous sulfate one tablet p.o. every other day. Patient to return to hospital if condition changes. Advised to follow up with PCP for further investigation of anemia. Patient in agreement. Home Medications: Reported Medications Atorvastatin Calcium (LIPITOR) 40 Mg Tablet, 40 MG PO PM, TAB 11/07/24 Atenolol (Atenolol) 50 Mg Tablet, 50 MG PO PM, TAB 11/07/24 Levothyroxine Sodium (Levothyroxine) 137 Mcg Capsule, 137 MCG PO AM, CAP 11/07/24 Fluoxetine HCl (Fluoxetine HCl) 10 Mg Tablet, 10 MG PO AM, TAB 11/07/24 Time spent arranging discharge: 31-60 minutes NAS SANTANA MD Nov 14, 2024 13:54
== END 2024-11-14 12:20 | disposition home or self-care (01) | DRG 448 ==
LOC: DAH 07:12 → DAHIP 07:13 → DAH 07:13 → 4DH 14:05
PROVIDERS: ADMIT Neuromusculoskeletal Medicine & OMM; ATTEND Neuromusculoskeletal Medicine & OMM
PROC: 0SG30AJ Fusion of Lumbosacral Joint with Interbody Fusion Device, Posterior Approach, Anterior Column, Open Approach (ICD-10-PCS; 2024-11-11)
PROC: 0SB40ZZ Excision of Lumbosacral Disc, Open Approach (ICD-10-PCS; 2024-11-11)
PROC: 01NB0ZZ Release Lumbar Nerve, Open Approach (ICD-10-PCS; 2024-11-11)
PROC: 01NR0ZZ Release Sacral Nerve, Open Approach (ICD-10-PCS; 2024-11-11)
PROC: 0SB40ZZ Excision of Lumbosacral Disc, Open Approach (ICD-10-PCS; 2024-11-11)
PROC: 0SG00AJ Fusion of Lumbar Vertebral Joint with Interbody Fusion Device, Posterior Approach, Anterior Column, Open Approach (ICD-10-PCS; principal; 2024-11-11 08:00)
DX: M48.07 Spinal stenosis, lumbosacral region (principal); M54.17 Radiculopathy, lumbosacral region; E66.9 Obesity, unspecified; E03.9 Hypothyroidism, unspecified; E78.5 Hyperlipidemia, unspecified; I10 Essential (primary) hypertension; G62.9 Polyneuropathy, unspecified; D64.9 Anemia, unspecified; I95.81 Postprocedural hypotension; Z79.899 Other long term (current) drug therapy; Z68.32 Body mass index [BMI] 32.0-32.9, adult
CPT/HCPCS: 36415; 72110; 80048; 80053; 80076; 81003; 82270; 83540; 83550; 83605; 83735; 85025; 85027; 85610; 85730; 86850; 86900; 86901; 87046; 87086; 88304; 88311; A4344; G0378; J1100; J1756; J1885; J2003; J2250; J2371; J2405; J2470; J2704; J2710; J3010; J3260; J3370; J3490; J7030; J7120; A4213; A4215; A4216; A4221; A4222; A4223; A4600; A4649; A4663; A6010; A6260; C1713; C1776; J0665; J0690